=== PATIENT | female | born 1955 | race Caucasian/White ===

== ENCOUNTER → 2016-04-23 | Outpatient (CLI) | payer BC ==
--- NOTE | 2016-04-23 10:57 | MM ---
Reason for exam: follow-up at short interval from prior study. Last mammogram was performed 3 months ago. History: Patient is postmenopausal. Physical Findings: Nurse Summary: 0.5cm nodule in the left breast at 5 o'clock and 12 o'clock (nurse kp). MG Diagnostic Mammo LT w CAD CC, MLO, and ML view(s) were taken of the left breast. Prior study comparison: January 13, 2016, left breast MG work up mamm w CAD LT. January 06, 2016, bilateral MG screening mammo w CAD. There are scattered fibroglandular densities. Persistant nodularity in the left breast. ASSESSMENT: Incomplete: need additional imaging evaluation, BI-RAD 0 RECOMMENDATION: Ultrasound of the left breast.
--- NOTE | 2016-04-23 10:58 | USB ---
Reason for exam: additional evaluation requested from abnormal screening. History: Patient is postmenopausal. US Breast LT Left breast ultrasound including all four quadrants, the retroareolar region and axilla demonstrates a 6 x 3 x 5mm oval, cystic lesion at 5 o'clock. These results were verbally communicated with the patient and result sheet given to the patient on 04/23/16. ASSESSMENT: Probably benign, BI-RAD 3 RECOMMENDATION: Follow-up diagnostic mammogram of both breasts in 6 months. Ultrasound of the left breast in 6 months. Back on schedule. Manage patient on a clinical basis.
== END | disposition home or self-care (01) ==
LOC: RADMAMWWP 09:39
PROVIDERS: ATTEND Surgery
DX: R92.8 Other abnormal and inconclusive findings on diagnostic imaging of breast (principal)
CPT/HCPCS: 76641; G0206

== ENCOUNTER → 2016-11-28 | Outpatient (CLI) | payer BC ==
[2016-11-28 17:14] LABS: INR 4.5 (<1.2)
--- NOTE | 2016-11-29 10:51 | MM ---
Reason for exam: follow-up at short interval from prior study. Last mammogram was performed 7 months ago. History: Patient is postmenopausal. Physical Findings: Nurse Summary: 1cm nodule in the left breast at 11-12 o'clock (nurse kp). MG Diagnostic Mammo w CAD ALEXANDRA Bilateral CC and MLO view(s) were taken. Prior study comparison: April 23, 2016, left breast MG diagnostic mammo LT w CAD. January 13, 2016, left breast MG work up mamm w CAD LT. There are scattered fibroglandular densities. No suspicious calcifications are seen. There is no discrete abnormality at palpable site. Stable nodular density upper outer left breast. These results were verbally communicated with the patient and result sheet given to the patient on 11/28/16. ASSESSMENT: Incomplete: need additional imaging evaluation, BI-RAD 0 RECOMMENDATION: Ultrasound of the left breast.
--- NOTE | 2016-11-29 10:52 | USB ---
Reason for exam: follow-up at short interval from prior study. History: Patient is postmenopausal. US Breast LT Left breast ultrasound includes all four quadrants, the retroareolar region and axilla. Finding demonstrates a 6 x 4 x 5mm oval, mixed, hypoechoic lesion at 5 o'clock seen on previous, stable. These results were verbally communicated with the patient and result sheet given to the patient on 11/28/16. ASSESSMENT: Benign, BI-RAD 2 RECOMMENDATION: Routine screening mammogram of both breasts in 1 year. Manage patient on a clinical basis.
== END | disposition home or self-care (01) ==
LOC: RADMAMWWP 15:07
PROVIDERS: ATTEND Surgery
DX: R92.8 Other abnormal and inconclusive findings on diagnostic imaging of breast (principal)
CPT/HCPCS: 85610; 76641; 36415; G0204

== ENCOUNTER → 2016-12-20 | Outpatient (CLI) | payer BC ==
--- NOTE | 2016-12-20 15:49 | US ---
EXAMINATION TYPE: US kidneys/renal and bladder DATE OF EXAM: 12/20/2016 COMPARISON: CT 08/08/2014 CLINICAL HISTORY: R39.82 Chronic bladder pain. History of UTI EXAM MEASUREMENTS: Right Kidney: 10.0 x 4.6 x 4.3 cm Left Kidney: 10.0 x 5.0 x 4.1 cm Post Void Residual Volume: 10.0 mL Right Kidney: No hydronephrosis or masses seen Left Kidney: Cyst visualized lower pole measuring 2.3 x 2.3 x 1.9 cm Bladder: Not fully distended, visualized portion appear wnl Bilateral Jets seen: No, however bladder is not fully distended Normal Post Void Residual: Yes, there is not a significant prevoid bladder distention. There is cortical thinning bilaterally. Cortical medullary differentiation appears maintained, there may be some slight increase in cortical echogenicity. There is no ascites. IMPRESSION: Simple cyst left kidney. There may be some underlying medical renal disease.
== END | disposition home or self-care (01) ==
LOC: RADUSWWP 14:16
PROVIDERS: ATTEND Family Medicine
DX: N28.1 Cyst of kidney, acquired (principal); R39.82 Chronic bladder pain
CPT/HCPCS: 76770

== ENCOUNTER → 2018-07-02 | Outpatient (CLI) | payer OTHER ==
[2018-07-02 12:18] LABS: Basophils % (A) 0 %; Eosinophils # (A) 0.3 k/uL (0-0.7); Eosinophils % (A) 3 %; HCT 44.2 % (34.0-46.0); HGB 13.8 gm/dL (11.4-16.0); Hypochromasia Slight; Lymphocytes # (A) 1.9 k/uL (1.0-4.8); Lymphocytes % (A) 21 %; MCH 28.8 pg (25.0-35.0); MCHC 31.3 g/dL (31.0-37.0); MCV 92.2 fL (80.0-100.0); Monocytes # (A) 0.4 k/uL (0-1.0); Monocytes % (A) 5 %; Neutrophils # (A) 6.2 k/uL (1.3-7.7); Neutrophils % (A) 68 %; Platelet Count 229 k/uL (150-450); RBC 4.79 m/uL (3.80-5.40); RDW 14.1 % (11.5-15.5); WBC 9.1 k/uL (3.8-10.6)
[2018-07-02 12:24] LABS: Appearance,Urine Cloudy (Clear); Bilirubin,Urine Negative (Negative); Blood,Urine Negative (Negative); Color,Urine Yellow; Glucose,Urine (UA) Negative (Negative); Hyaline Casts,Urine 1 /lpf (0-2); Ketones,Urine Negative (Negative); Leukocyte Esterase,Urine Negative (Negative); Mucus,Urine Occasional /hpf; Nitrite,Urine Negative (Negative); Protein,Urine Negative (Negative); RBC,Urine <1 /hpf (0-5); Specific Gravity,Urine 1.025 (1.001-1.035); Squamous Epithelial Cell,Urine 9 /hpf (0-4); Urobilinogen,Urine <2.0 mg/dL (<2.0); WBC,Urine 2 /hpf (0-5)
[2018-07-02 17:32] LABS: Vitamin D 25 Hydroxy 32.7 ng/mL (30.0-100.0)
[2018-07-02 18:06] LABS: T4, Free (Free Thyroxine) 1.2 ng/dL (0.80-1.80)
[2018-07-02 18:08] LABS: Albumin/Globulin Ratio 1.54 (1.60-3.17); Anion Gap 7.7 mmol/L (4.00-12.00); Calcium 9.6 mg/dL (8.7-10.3); Carbon Dioxide 25.3 mmol/L (21.6-31.8); Globulin 2.6 g/dL (1.6-3.3); LDL Cholesterol,Calculated 113.8 mg/dL (0.0-131.0); Potassium 4.8 mmol/L (3.5-5.5); Total Bilirubin 0.3 mg/dL (0.3-1.2); Total Protein 6.6 g/dL (6.2-8.2); VLDL Calculation 17.2 mg/dL (5.00-40.00)
== END | disposition home or self-care (01) ==
LOC: LABWHC1 10:52
PROVIDERS: ATTEND Family Medicine
DX: E03.9 Hypothyroidism, unspecified (principal); M79.7 Fibromyalgia; Z79.01 Long term (current) use of anticoagulants; Z86.718 Personal history of other venous thrombosis and embolism
CPT/HCPCS: 36415; 80053; 80061; 81001; 82306; 82550; 82607; 83735; 84439; 84443; 85025

== ENCOUNTER → 2019-02-05 | Outpatient (CLI) | payer OTHER ==
[2019-02-05 11:31] LABS: Basophils # (A) 0.1 k/uL (0-0.2); Basophils % (A) 1 %; Eosinophils # (A) 0.4 k/uL (0-0.7); Eosinophils % (A) 4 %; HCT 43.6 % (34.0-46.0); HGB 13.6 gm/dL (11.4-16.0); Lymphocytes # (A) 1.9 k/uL (1.0-4.8); Lymphocytes % (A) 21 %; MCH 29.2 pg (25.0-35.0); MCHC 31.2 g/dL (31.0-37.0); MCV 93.7 fL (80.0-100.0); Monocytes # (A) 0.6 k/uL (0-1.0); Monocytes % (A) 7 %; Neutrophils # (A) 5.6 k/uL (1.3-7.7); Neutrophils % (A) 64 %; Platelet Count 196 k/uL (150-450); RBC 4.65 m/uL (3.80-5.40); RDW 13.4 % (11.5-15.5); WBC 8.7 k/uL (3.8-10.6)
[2019-02-05 12:02] LABS: Appearance,Urine Clear (Clear); Bilirubin,Urine Negative (Negative); Blood,Urine Negative (Negative); Color,Urine Yellow; Glucose,Urine (UA) Negative (Negative); Ketones,Urine Negative (Negative); Leukocyte Esterase,Urine Negative (Negative); Nitrite,Urine Negative (Negative); PH, Urine 5.5 (5.0-8.0); Protein,Urine Negative (Negative); Specific Gravity,Urine 1.021 (1.001-1.035); Urobilinogen,Urine <2.0 mg/dL (<2.0)
[2019-02-05 17:35] LABS: African American GFR (CKD) 78.3 (60.0-200.0); Albumin 3.9 g/dL (3.80-4.90); Albumin/Globulin Ratio 1.56 (1.60-3.17); Anion Gap 5.7 mmol/L (4.00-12.00); BUN/Creat Ratio 17.78 Ratio (12.00-20.00); Calcium 9.1 mg/dL (8.7-10.3); Carbon Dioxide 25.3 mmol/L (21.6-31.8); Chol/HDL Ratio 3.14; Globulin 2.5 g/dL (1.6-3.3); LDL Cholesterol,Calculated 106.8 mg/dL (0.0-131.0); Non-African American GFR(CKD) 67.6 (60.0-200.0); Potassium 4.4 mmol/L (3.5-5.5); Total Bilirubin 0.4 mg/dL (0.3-1.2); Total Protein 6.4 g/dL (6.2-8.2); VLDL Calculation 19.2 mg/dL (5.00-40.00)
[2019-02-05 17:42] LABS: T4, Free (Free Thyroxine) 1.1 ng/dL (0.80-1.80)
== END | disposition home or self-care (01) ==
LOC: LABWHC1 10:50
PROVIDERS: ATTEND Family Medicine
DX: E03.9 Hypothyroidism, unspecified (principal); M79.7 Fibromyalgia; Z79.01 Long term (current) use of anticoagulants; Z86.718 Personal history of other venous thrombosis and embolism
CPT/HCPCS: 36415; 80053; 80061; 81003; 82306; 82550; 83735; 84439; 84443; 85025

== ENCOUNTER → 2019-12-31 | Outpatient (CLI) | payer MEDICARE ==
--- NOTE | 2019-12-31 20:22 | BD ---
EXAMINATION TYPE: Axial Bone Density DATE OF EXAM: 12/31/2019 COMPARISON: NONE CLINICAL HISTORY: 64 YR OLD FEMALE.....ICD-10 CODE: N95.1 MENOPAUSAL Height: 62 Weight: 173 FRAX RISK QUESTIONS: History of Fracture in Adulthood: YES RISK FACTORS HISTORY OF: History of Wrist Fracture: YES, LEFT WRIST, AN ADULT Postmenopausal woman: YES, TOTAL HYST IN 2001 AT 44 YRS OLD Lost more than 2 inches in height since high school: YES, SHE CLAIMS 65 INCHES IN HS Hyperparathyroidism: NO Adrenal Insufficiency: NO MEDICATIONS: Thyroid Medications: YES, SYNTHROID, FOR ABOUT 10+ YRS Additional Medications: VIT D, B12, COUMADIN Additional History: CLOTTING DISORDER EXAM MEASUREMENTS: Bone mineral densitometry was performed using the Newser System. Bone mineral density as measured about the Lumbar spine is: ----- L1-L4(G/cm2): 1.038 T Score Values are as follows: ----- L1: -2.4 ----- L2: -2.2 ----- L3: -0.5 ----- L4: -0.2 ----- L1-L4: -1.2 Bone mineral density FIRST BONE DENSITY STUDY AT [facility] Bone mineral density about the R hip (g/cm2): 0.769 Bone mineral density about the L hip (g/cm2): 0.766 T Score values are as follows: -----R Neck: -2.1 -----L Neck: -2.1 -----R Total: -1.9 -----L Total: -1.9 Bone mineral density FIRST AT [facility] FRAX%s: THERE IS A 17.8% CHANCE FOR A MAJOR OSTEOPOROTIC FX AND A 3.0% FOR HIP......PROBABILITY FO R FX IN 10 YRS TIME IMPRESSION: Osteopenia (T Score between -2.5 and -1). There is slightly increased risk of fracture and the patient may be considered for treatment. Re-Screen 2-5 years. NOTE: T-SCORE=SD OF THE YOUNG ADULT MEAN.
== END | disposition home or self-care (01) ==
LOC: RADBDWWP 12:39
PROVIDERS: ATTEND Family Medicine
DX: M85.80 Other specified disorders of bone density and structure, unspecified site (principal)
CPT/HCPCS: 77080

== ENCOUNTER → 2021-12-13 | Outpatient (CLI) | payer MEDICARE ==
--- NOTE | 2021-12-13 19:50 | CT ---
EXAMINATION TYPE: CT abdomen pelvis wo con CT DLP: 792 mGycm, Automated exposure control for dose reduction was used. DATE OF EXAM: 12/13/2021 5:41 PM COMPARISON: CT abdomen pelvis most recent from 08/08/2014 CLINICAL INDICATION:Female, 66 years old with history of R10.32 LEFT LOWER QUADRANT PAIN; lower abdom inal pain and cramping. hx of diverticulitis TECHNIQUE: Axial CT of the abdomen and pelvis. Sagittal and coronal reformats were created on a [employer] workstation. Contrast used: None Oral contrast used: with Oral Contrast FINDINGS: LOWER CHEST: Unremarkable ABDOMEN LIVER: Unremarkable GALLBLADDER AND BILE DUCTS: The gallbladder is surgically absent. PANCREAS: Lipomatous atrophy changes. SPLEEN: Unremarkable. ADRENAL GLANDS: Unremarkable. KIDNEYS AND URETERS: No evidence of hydronephrosis or renal calculus. The ureters are unremarkable. Left renal cyst. PELVIS BLADDER: Incompletely distended but grossly unremarkable. REPRODUCTIVE: The uterus is surgically absent. ABDOMEN & PELVIS STOMACH AND BOWEL: Mild wall thickening of the sigmoid colon in the left lower quadrant measuring karin roximately 4.1 cm in 2 10 mm in thickness which is slightly eccentric. There is minimal fat stranding in this area as well as a few colonic diverticula. PERITONEUM: No evidence of pneumoperitoneum or free fluid. VASCULATURE: No evidence of aortic aneurysm. IVC filter in place. MUSCULOSKELETAL: No acute osseous abnormalities LYMPH NODES: No gross evidence for lymphadenopathy. SOFT TISSUE/ABDOMINAL WALL: Left fat-containing inguinal hernia. IMPRESSION: 1. Sigmoid colon circumferential slightly eccentric wall thickening which could represent colitis/div erticulitis. Follow-up colonoscopy recommended to rule out underlying mass if not recently performed given slightly eccentric wall thickening. 2. Left fat containing inguinal hernia.
== END | disposition home or self-care (01) ==
LOC: RADCTMAIN 17:18
PROVIDERS: ATTEND Family Medicine
DX: K40.90 Unilateral inguinal hernia, without obstruction or gangrene, not specified as recurrent (principal)
CPT/HCPCS: 74176

== ENCOUNTER → 2022-02-27 | Outpatient (CLI) | payer MEDICARE ==
--- NOTE | 2022-02-27 21:50 | FL ---
EXAMINATION TYPE: FL barium enema DATE OF EXAM: 02/27/2022 COMPARISON: Prior CT abdomen and pelvis December 13, 2021 and older study from 2014. HISTORY: Abnormal CT. History of constipation and diarrhea. Abdominal pain and cramping. Diverticulos is. TECHNIQUE: A double contrast barium enema study is performed. A total of 2 minutes 13 seconds of fl uoroscopic time was utilized during procedure and 27 images obtained. FINDINGS: Wood Boat[employer] view of the abdomen shows overall non-obstructive bowel gas pattern. Cholecystectomy clips are redemonstrated. Infrarenal IVC filter again seen. An MR study is successfully performed. There is satisfactory opacification to the cecum. Scattered di verticulosis throughout the left and sigmoid colon lungs with few scattered diverticula in the transv erse colon are present. No obstructing lesion is seen. Appendix was filled and appeared normal. Terminal ileum was not refluxed. At area of clinical concern on recent CT the proximal sigmoid colon level there is short segment persistent narrowing which negra elates with the CT area axial image 66 and coronal image 41. There is some shouldering of the margins but fairly normal-appearing mucosa centrally. Findings would shaver a focal stricture over neoplasm. Remainder of colon shows no constricting lesion. IMPRESSION: Persistent short segment abnormal area of proximal sigmoid colon level left pelvis. Foca l stricture is favored over neoplasm. No obstruction currently but the degree of narrowing is signifi cant. Would consider colonoscopy and/or surgical evaluation to exclude mass or neoplasm and/or treat significant focal stricture. CT with rectal contrast may also possibly help in further evaluating.
== END | disposition home or self-care (01) ==
LOC: RADFLMAIN 09:16
PROVIDERS: ATTEND Surgery
DX: K57.32 Diverticulitis of large intestine without perforation or abscess without bleeding (principal); K59.00 Constipation, unspecified
CPT/HCPCS: 74270

== ENCOUNTER → 2022-03-16 | Outpatient (CLI) | payer MEDICARE ==
[2022-03-16 15:52] LABS: INR 3.04 (0.90-1.11); Prothrombin Time 32.9 sec (9.9-11.9)
== END | disposition home or self-care (01) ==
LOC: LABWHC1 09:23
PROVIDERS: ATTEND Family Medicine
DX: Z79.01 Long term (current) use of anticoagulants (principal)
CPT/HCPCS: 36415; 85610

== ENCOUNTER → 2022-06-07 | Outpatient (CLI) | payer MEDICARE ==
--- NOTE | 2022-06-07 10:58 | XR ---
EXAMINATION TYPE: XR chest 2V DATE OF EXAM: 06/07/2022 COMPARISON: 02/01/2015 HISTORY: Preoperative, history of PE TECHNIQUE: Frontal and lateral views of the chest are obtained. FINDINGS: The heart is not enlarged and there is no pulmonary vascular congestion. The lungs are swapnil ar and there is no pleural effusion. No pneumothorax. No acute osseous abnormalities. Surgical clips projecting over the right upper quadrant. IMPRESSION: No acute cardiopulmonary process.
[2022-06-07 14:21] LABS: HCT 39.8 % (37.2-46.3); MCH 29.4 pg (27.0-32.0); MCHC 30.2 g/dL (32.0-37.0); MCV 97.5 fL (80.0-97.0); Mean Platelet Volume 12.2 fL (9.5-12.2); NRBC Per 100 WBC 0 /100 WBCS (0.0-0.0); Platelet Count 266 X 10*3/uL (140-440); RBC 4.08 X 10*6/uL (4.10-5.20); RDW 15.2 % (11.5-14.5); WBC 9.73 X 10*3/uL (4.50-10.00)
[2022-06-07 15:18] LABS: African American GFR (CKD) 76.7 (60.0-200.0); Anion Gap 14.1 mmol/L (10.00-18.00); BUN/Creat Ratio 16.67 Ratio (12.00-20.00); Calcium 9.7 mg/dL (8.7-10.3); Carbon Dioxide 19.9 mmol/L (20.0-27.5); Non-African American GFR(CKD) 66.2 (60.0-200.0); Potassium 4.1 mmol/L (3.5-5.5)
== END | disposition home or self-care (01) ==
LOC: LABWHC1 09:33
PROVIDERS: ATTEND Surgery
DX: Z01.812 Encounter for preprocedural laboratory examination (principal); Z86.711 Personal history of pulmonary embolism
CPT/HCPCS: 36415; 71046; 80048; 85027; 86850; 86900; 86901

== ENCOUNTER → 2024-05-15 | Outpatient (CLI) | payer MEDICARE ==
--- NOTE | 2024-05-15 18:59 | CT ---
EXAMINATION TYPE: CT abdomen pelvis wo con DATE OF EXAM: 05/15/2024 11:08 AM COMPARISON: 12/13/2021 CLINICAL INDICATION: Female, 68 years old with history of K57.32 DVTRCLI OF LG INT W/O PERFORATION OR ABSCES, diverticulitis without perforation or abscess, history of 10 inches of colon removed TECHNIQUE: Axial images were obtained from above the diaphragm to the pubic rami in the axial plane a t 5 mm thick sections. Reconstructed images are reviewed on the computer in the coronal plane. CONTRAST: mL of . Study performed without Oral Contrast DLP: 857 mGycm, Automated exposure control for dose reduction was used. FINDINGS: Limited CT sections are obtained the lung bases. The lung bases are clear. CT ABDOMEN: Anterior abdominal wall hernia is present in the periumbilical region. The opening is 2.5 cm. No loops of bowel are involved. More superiorly a second anterior abdominal wall hernia containi ng loop of small bowel is present. No obstruction is evident. The opening is 4 cm. Liver: Normal Spleen: Normal Pancreas: There is fatty infiltration of the liver. Adrenal glands: The adrenal glands are normal. Gallbladder: Surgically absent. Kidneys: No masses are evident. No hydronephrosis is present. No cysts are present. No renal stone s are evident. Aorta: Vascular calcification is within the aorta. Inferior vena cava: Filter is present within the inferior vena cava. CT PELVIS: Loops of bowel within the abdomen and pelvis are normal. There appears to be some bowel surgery in t he right lower quadrant. This may be the patient's sigmoid resection. Additional anastomosis is not ed in the anterior small bowel loops. No obstruction is identified. There are loops of bowel which ar e incompletely distended or lack oral contrast limiting their evaluation. No suspicious diverticulosis no acute diverticulitis evident. Appendix: Normal as visualized. No adjacent inflammatory changes. Urinary bladder: Normal. Genitourinary structures: Uterus and ovaries are not identified. Osseous structures: No suspicious lytic or sclerotic lesions. IMPRESSION: 1. No acute diverticulitis and no significant diverticulosis. 2. Postsurgical changes. No obvious obstruction evident. 3. Small anterior abdominal wall hernias containing mesenteric fat. A loop of small bowel bowel is wi thin the more superior hernia without obstruction. 4. Mild fatty infiltration liver. [facility], , 05/15/2024 6:56 PM
== END | disposition home or self-care (01) ==
LOC: RADCTMAIN 10:36
PROVIDERS: ATTEND Surgery
DX: K76.0 Fatty (change of) liver, not elsewhere classified (principal); K57.92 Diverticulitis of intestine, part unspecified, without perforation or abscess without bleeding
CPT/HCPCS: 74176

== ENCOUNTER 2024-06-15 08:57 | Day surgery (SDC) | payer MEDICARE ==
[2024-06-11 09:42] VITALS: BMI 32.1
--- NOTE | 2024-06-15 07:45 | P.GSHP ---
History of Present Illness H&P Date: 06/15/24 Chief Complaint: Incisional hernia 68-year-old female presents for elective repair incisional hernia. Patient with history of diverticulitis and previous resection done laparoscopically. After the surgery felt a bulge above the umbilicus. CAT scan shows a hernia that is s upraumbilical and also 1 near the umbilical region itself. Non-smoker. Increasing pain there. Also has some vague discomforts elsewhere in the abdomen. Recent CAT scan performed showed no other abnormalities. Past Medical History Past Medical History: Blood Disorder, Deep Vein Thrombosis (DVT), Fibromyalgia, Pulmonary Embolus (PE), Thyroid Disorder Additional Past Medical History / Comment(s): blood clotting disorder (could be katie, thrombin D deficincy, Vit C deficency) on Coumadin, pulmonary embolisms bilaterally, DVT to L leg, diverticulitis,Raynauds bilaterally, hypothyroidism, UTI History of Any Multi-Drug Resistant Organisms: None Reported Past Surgical History: Bowel Resection, Cholecystectomy, Hysterectomy Additional Past Surgical History / Comment(s): rosa filter, colonoscopies x 2 normal. ILEOSTOMY WITH REVERSAL Past Anesthesia/Blood Transfusion Reactions: No Reported Reaction Additional Past Anesthesia/Blood Transfusion Reaction / Comment(s): Has had transfusion without reaction. Smoking Status: Never smoker - Past Family History Father Family Medical History: Coronary Artery Disease (CAD), Dementia Additional Family Medical History / Comment(s): HEart disease, alzheimers- at age 79yrs. Mother Family Medical History: Blood Disorder Additional Family Medical History / Comment(s): Emphysema, Blood Disorder. Mother at age 64 yrs. Medications and Allergies Home Medications Medication Instructions Recorded Confirmed Type Cholecalciferol [Vitamin D3 (25 2,000 unit PO DAILY 08/07/14 06/11/24 History Mcg = 1000 Iu)] Cyanocobalamin [Vitamin B-12] 500 mcg PO Q2D 08/07/14 06/11/24 History Levothyroxine Sodium [Synthroid] 50 mcg PO DAILY 08/07/14 06/11/24 History Warfarin [Coumadin] 5 mg PO DAILY 08/07/14 06/11/24 History Calcium Carbonate/Vitamin D3 1 each PO DAILY 06/11/24 06/11/24 History [Calcium 500-Vit D3 5 Mcg (200 Iu)] Lutein 20 mg PO Q2D 06/11/24 06/11/24 History Allergies Allergy/AdvReac Type Severity Reaction Status Date / Time adhesive Allergy Rash/Hives Verified 06/11/24 09:26 Bleach (Sodium Hypochlorite) Allergy Dyspnea Verified 06/11/24 09:27 Iodinated Contrast Media Allergy Anaphylaxis Verified 06/11/24 09:26 [Iodinated Contrast Media - IV Dye] Penicillins Allergy Rash/Hives Verified 06/11/24 09:26 Sulfa (Sulfonamide Allergy Rash/Hives Verified 06/11/24 09:26 Antibiotics) Surgical - Exam Physical exam: General: Well-developed, well-nourished HEENT: Normocephalic, sclerae nonicteric Abdomen: Nontender, nondistended, previous scars noted, reducible periumbilical hernia Extremities: No edema Neuro: Alert and oriented Assessment and Plan (1) Umbilical hernia Narrative/Plan: 68-year-old female with reducible periumbilical incisional hernia. Will proceed with open repair incisional hernia with mesh. Risks of bleeding, infection, recurrence, chronic pain, bladder and bowel injury, numbness, scarring, and anesthesia related complications were discussed. The correlation between hernia recurrence, obesity and smoking were reviewed in detail. The patient understands and wishes to proceed. Status: Acute Code(s): K42.9 - UMBILICAL HERNIA WITHOUT OBSTRUCTION OR GANGRENE SNOMED Code(s): 438018810
[2024-06-15] MEDS: IV FLUID CONTINUATION 1,000 ML IV ONE (09:45)
[2024-06-15] MEDS: LACTATED RINGERS 1,000 ML IV SCH (09:45)
[2024-06-15] MEDS: ONDANSETRON 4 MG/2 ML VIAL IVP ONE (10:01)
[2024-06-15] MEDS: ACETAMINOPHEN TAB 500 MG TAB PO PRN (10:01)
[2024-06-15] MEDS: HEPARIN SODIUM,PORCINE 5,000 UNIT/ML 1 ML VIAL SQ PRN (10:02)
[2024-06-15] MEDS: DEXAMETHASONE SOD PHOSPHATE 4 MG/ML 1 ML VIAL IV ONE (10:02)
[2024-06-15 10:10] LABS: INR 0.9 (<1.2); Prothrombin Time 10.2 sec (10.0-12.5)
[2024-06-15] MEDS ORDERED: SUCCINYLCHOLINE CHLORIDE 200 MG/10 ML VIAL IV ONE (10:45)
[2024-06-15] MEDS ORDERED: LIDOCAINE 1% INJ 10MG/ML (20 ML MDV) ONE (10:45)
[2024-06-15] MEDS ORDERED: MIDAZOLAM 2 MG/2 ML VIAL ONE (10:45)
[2024-06-15] MEDS ORDERED: ROCURONIUM 10 MG/ML (5 ML VIAL) IV ONE (10:45)
[2024-06-15] MEDS ORDERED: fentaNYL (PF) 50 MCG/ML 2 ML AMP ONE (10:45)
[2024-06-15] MEDS ORDERED: PROPOFOL 10 MG/ML 20 ML VIAL IV ONE (10:45)
[2024-06-15] MEDS ORDERED: LIDOCAINE 4% LTA KIT (4 ML) TOPICAL ONE (10:45)
[2024-06-15] MEDS ORDERED: NEOSTIGMINE 1 MG/ML 10 ML VIAL ONE (10:45)
[2024-06-15] MEDS ORDERED: PHENYLEPHRINE-0.9% NACL SYG 1,000 MCG/10 ML SYRINGE ONE (10:45)
[2024-06-15] MEDS ORDERED: HEPARIN SODIUM,PORCINE 5,000 UNIT/ML 1 ML VIAL ONE (10:45)
[2024-06-15] MEDS ORDERED: GLYCOPYRROLATE 0.2 MG/ML 2 ML VIAL ONE (10:45)
[2024-06-15] MEDS ORDERED: KETAMINE HCL IN 0.9 % NACL 50 MG/5 ML SYRINGE ONE (10:45)
[2024-06-15] MEDS: BUPIVACAINE (PF) 0.25% 30 ML VIAL SQ ONE (11:12)
--- NOTE | 2024-06-15 12:28 | P.OP ---
Date of Procedure: 06/15/24 Procedure(s) Performed: PREOPERATIVE DIAGNOSIS: Incisional hernia POSTOPERATIVE DIAGNOSIS: Same PROCEDURE: Reducible incisional hernia repair with mesh SURGEON: Dr. Nelson ANESTHESIA: General EBL: 20 cc OPERATIVE PROCEDURE DETAILS: Patient placed on the operating table in the supine position. Abdomen was prepped and draped in usual sterile fashion. The previous incision was re-incised. Incision went from the supraumbilical location to the infraumbilical location to the right side of the umbilicus. D issection through the subcutaneous tissues took place using electrocautery. A moderate-sized hernia was identified. The hernia sac was carefully dissected down to the level of the fascia where it was excised. The patient had a total of 3 fascial openings with the largest measuring about 4 cm in diameter. The 2 smaller ones were inferiorly each measuring 1-2 cm. These were all incorporated into one larger fascial defect which measured approximately 7 x 5 cm. The 12 x 8 cm ventrio mesh was placed beneath the fascia and sutured to the fascia using trans-fascial 0 Ethibond sutures. Secure strap was utilized between these transfascial sutures. Following that the midline fascia was reapproximated using interrupted horizontal mattress 0 Ethibond sutures. A drain was placed anterior to the fascial closure exiting through the left lower quadrant. This was sutured to the skin using a 3-0 silk stitch. The subcutaneous tissues were closed using 2 oh and 3-0 Vicryl sutures. The skin was closed using a running 4-0 Monocryl subcuticular stitch. Skin glue and sterile dressings were applied. HERNIA CHARACTERISTICS: Length: 7 cm Width: 5 cm Type: Reducible incisional TYPE OF MESH USED: 12 x 8 cm Ventrio mesh LOCATION OF MESH: Sublay intraperitoneal FIXATION: 0 Ethibond and secure strap PREOPERATIVE DISCUSSION ON SMOKING CESSASTION: Yes PREOPERATIVE DISCUSSION ON MORBID OBESITY: Yes PREOPERATIVE DISCUSSION ON APPROPRIATE USE OF NARCOTIC USE: Yes PREOPERATIVE EDUCATION: Multi Modal, Smoking Cessation and Weight Loss with BMI over 35. DISPOSITION: Stable to recovery room
[2024-06-15] MEDS: HYDROmorphone 0.5 MG/0.5 ML SYRINGE IVP PRN (12:59)
[2024-06-15] MEDS ORDERED: HYDROcodone/APAP 5-325MG 1 EACH TAB PO PRN (14:22)
[2024-06-15] MEDS ORDERED: traMADol 50 MG TAB PO PRN (14:22)
[2024-06-15] MEDS ORDERED: HYDROmorphone 0.5 MG/0.5 ML SYRINGE IVP PRN (14:22)
[2024-06-15] MEDS ORDERED: HYDROmorphone 1 MG/ML 1 ML SYRINGE IVP PRN (14:22)
[2024-06-15] MEDS ORDERED: NALOXONE 0.4 MG/ML 1 ML VIAL IV PRN (14:22)
[2024-06-15] MEDS: IV FLUID CONTINUATION 500 ML IV ONE (14:28)
[2024-06-15] MEDS: MIDAZOLAM 2 MG/2 ML VIAL IV ONE (14:38)
[2024-06-15] MEDS: fentaNYL (PF) 50 MCG/ML 2 ML AMP IVP PRN (14:39)
--- NOTE | 2024-06-15 15:45 | P.CONS ---
History of Present Illness - Reason for Consult Consult date: 06/15/24 - History of Present Illness History of present illness: 68-year-old female with past medically significant for DVT/PE, history of blood clotting disorder, on Coumadin, history of hypothyroidism, has history of diverticulitis and previously had resection done laparoscopically, after surgery she felt a bulge over the umbilicus. CT scan showed a hernia which was supraumbilical. Patient underwent elective incisional hernia repair. Internal medicine consulted for medical management. Patient denied any history of heart disease, high blood pressure, high cholesterol. Patient reported history of having DVT and PEs, reported she takes Coumadin normally, was just put on Eliquis to go through surgery. Patient denied any fever, chills, sore throat, productive cough, shortness breath, chest pain, palpitation, nausea vomiting diarrhea. Patient complaining of abdominal pain after surgery. Patient denied any weakness or numbness of extremities. Patient is afebrile, heart rate 71, respiratory rate 16, blood pressure 122/60, saturating 95% 3 L. Assessment and plan: Status post elective incisional hernia repair: Management per general surgery Pain control, perioperative antibiotics, drain care per primary Bowel/bladder protocol History of DVT/PE: History of IVC filter: Coumadin resumed by general surgery Continue Coumadin, monitor INR Hypothyroidism: Continue Synthroid DVT prophylaxis Anticoagulated Monitor vital signs and labs Labs and medication were reviewed. Continue same treatment. Further recommendations as per clinical course of the patient PHYSICAL EXAMINATION: GENERAL: The patient is A&O x3, NAD HEENT: EOMI, Sclerae anicteric, Moist Mucous membranes Neck: Supple, Non tender, No JVD PULMONARY: Equal breath souds B/L, No wheezing, No crackles. CARDIOVASCULAR: S1, S2 present. No murmurs, rubs, or gallops. ABDOMEN: Binder in place. Tender. MUSCULOSKELETAL: No edema, No cyanosis. No clubbing. Normal ROM. Intact peripheral pulses. NEUROLOGICAL: CN 2-12 grossly intact. No FND REVIEW OF SYSTEMS: CONSTITUTIONAL: Complaining of fatigue. HEENT: No recent visual problems or hearing problems. Denied any sore throat. CARDIOVASCULAR: No chest pain, orthopnea, PND, no palpitations, no syncope. PULMONARY: No shortness of breath, no cough, no hemoptysis. GASTROINTESTINAL: No diarrhea, no nausea, no vomiting, complains of abdominal pain. NEUROLOGICAL: No headaches, no weakness, no numbness. HEMATOLOGICAL: Denies any bleeding or petechiae. GENITOURINARY: Denies any burning micturition, frequency, or urgency. MUSCULOSKELETAL/RHEUMATOLOGICAL: Denies any joint pain, swelling, or any muscle pain. ENDOCRINE: Denies any polyuria or polydipsia. The rest of the 14-point review of systems is negative. Dictation was produced using txtr dictation software. please excuse any grammatical, word or spelling errors. Past Medical History Past Medical History: Blood Disorder, Deep Vein Thrombosis (DVT), Fibromyalgia, Pulmonary Embolus (PE), Thyroid Disorder Additional Past Medical History / Comment(s): blood clotting disorder (could be katie, thrombin D deficincy, Vit C deficency) on Coumadin, pulmonary embolisms bilaterally, DVT to L leg, diverticulitis,Raynauds bilaterally, hypothyroidism, UTI History of Any Multi-Drug Resistant Organisms: None Reported Past Surgical History: Bowel Resection, Cholecystectomy, Hysterectomy Additional Past Surgical History / Comment(s): rosa filter, colonoscopies x 2 normal. ILEOSTOMY WITH REVERSAL Past Anesthesia/Blood Transfusion Reactions: No Reported Reaction Additional Past Anesthesia/Blood Transfusion Reaction / Comm: Has had transfusion without reaction. Smoking Status: Never smoker - Past Family History Father Family Medical History: Coronary Artery Disease (CAD), Dementia Additional Family Medical History / Comment(s): HEart disease, alzheimers- at age 79yrs. Mother Family Medical History: Blood Disorder Additional Family Medical History / Comment(s): Emphysema, Blood Disorder. Mother at age 64 yrs. Medications and Allergies Home Medications Medication Instructions Recorded Confirmed Type Cholecalciferol [Vitamin D3 (25 2,000 unit PO DAILY 08/07/14 06/11/24 History Mcg = 1000 Iu)] Cyanocobalamin [Vitamin B-12] 500 mcg PO Q2D 08/07/14 06/11/24 History Levothyroxine Sodium [Synthroid] 50 mcg PO DAILY 08/07/14 06/11/24 History Warfarin [Coumadin] 5 mg PO DAILY 08/07/14 06/11/24 History Calcium Carbonate/Vitamin D3 1 each PO DAILY 06/11/24 06/11/24 History [Calcium 500-Vit D3 5 Mcg (200 Iu)] Lutein 20 mg PO Q2D 06/11/24 06/11/24 History Apixaban [Eliquis] 5 mg PO BID 06/15/24 06/15/24 History oxyCODONE HCL [OxyIR] 5 mg PO Q6H PRN 3 Days #6 tab 06/15/24 Rx Allergies Allergy/AdvReac Type Severity Reaction Status Date / Time adhesive Allergy Rash/Hives Verified 06/15/24 09:21 Bleach (Sodium Hypochlorite) Allergy Dyspnea Verified 06/15/24 09:21 Iodinated Contrast Media Allergy Anaphylaxis Verified 06/15/24 09:21 [Iodinated Contrast Media - IV Dye] Penicillins Allergy Rash/Hives Verified 06/15/24 09:21 Sulfa (Sulfonamide Allergy Rash/Hives Verified 06/15/24 09:21 Antibiotics) Physical Exam Vitals: Vital Signs Temp Pulse Pulse Resp BP BP Pulse Ox 06/15/24 14:57 71 16 122/60 95 06/15/24 14:42 67 14 124/63 94 L 06/15/24 14:20 65 14 113/55 93 L 06/15/24 14:05 72 14 115/56 94 L 06/15/24 13:50 70 14 116/59 95 06/15/24 13:35 78 16 127/58 95 06/15/24 13:20 75 14 130/59 99 06/15/24 13:05 81 16 141/65 98 06/15/24 12:50 88 14 140/67 98 06/15/24 12:35 97 F L 99 14 168/89 98 06/15/24 09:45 97.2 F L 85 16 145/72 97 Intake and Output 06/15/24 06/15/24 06/15/24 06:59 14:59 22:59 Intake Total 1200 Output Total 20 Balance 1180 Intake: IV 1200 Output: Estimated Blood Loss 20 Other: Weight 83.9 kg
[2024-06-15] MEDS: IBUPROFEN 600 MG TAB PO SCH (16:52)
[2024-06-15] MEDS: KETOROLAC 15 MG/ML 1 ML VIAL IVP SCH (18:58)
[2024-06-15] MEDS: WARFARIN 5 MG TAB PO SCH (18:59)
[2024-06-15] MEDS: CYANOCOBALAMIN 500 MCG TAB PO SCH (18:59)
[2024-06-15] MEDS: D5-0.45% NACL WITH KCL 20MEQ/L 1,000 ML IV SCH (18:59)
[2024-06-15] MEDS: ACETAMINOPHEN TAB 325 MG TAB PO SCH (18:59)
[2024-06-15] MEDS: DOCUSATE 100 MG CAP PO SCH (20:24)
[2024-06-15] MEDS: FAMOTIDINE 20 MG TAB PO SCH (20:24)
[2024-06-16] MEDS: ONDANSETRON 4 MG/2 ML VIAL IVP PRN (01:57)
[2024-06-16 04:36] LABS: Prothrombin Time 11.1 sec (10.0-12.5)
[2024-06-16] MEDS: LEVOTHYROXINE 50 MCG TAB PO SCH (05:41)
[2024-06-16 08:32] LABS: ALT 13 U/L (8-44); AST 20 U/L (13-35); Albumin 3.4 g/dL (3.8-4.9); Albumin/Globulin Ratio 1.17 Ratio (1.60-3.17); Alkaline Phosphatase 121 U/L (41-126); Blood Urea Nitrogen 15.3 mg/dL (9.0-27.0); Calcium 9.3 mg/dL (8.7-10.3); Chloride 107 mmol/L (96-109); Globulin 2.9 g/dL (1.6-3.3); Glucose 153 mg/dL (70-110); Potassium 4.8 mmol/L (3.5-5.5); Sodium 140 mmol/L (135-145); Total Bilirubin 0.2 mg/dL (0.3-1.2); Total Protein 6.3 g/dL (6.2-8.2)
[2024-06-16 08:39] LABS: Basophils # (A) 0.02 X 10*3/uL (0.00-0.10); Basophils % (A) 0.1 %; Eosinophils # (A) 0 X 10*3/uL (0.04-0.35); Eosinophils % (A) 0 %; HCT 40.7 % (37.2-46.3); HGB 12.3 g/dL (12.0-15.0); Lymphocytes # (A) 0.93 X 10*3/uL (0.90-5.00); Lymphocytes % (A) 5.2 %; MCH 29.8 pg (27.0-32.0); MCHC 30.2 g/dL (32.0-37.0); MCV 98.5 FL (80.0-97.0); Mean Platelet Volume 13.2 FL (9.5-12.2); Monocytes # (A) 0.99 X 10*3/uL (0.20-1.00); Monocytes % (A) 5.6 %; NRBC Per 100 WBC 0 X 10*3/uL (0.00-0.01); Neutrophils # (A) 15.71 X 10*3/uL (1.80-7.70); Neutrophils % (A) 88.6 %; Platelet Count 186 X 10*3/uL (140-440); RBC 4.13 X 10*6/uL (4.10-5.20); RDW 13.5 % (11.5-14.5); WBC 17.73 X 10*3/uL (4.50-10.00)
--- NOTE | 2024-06-16 13:20 | P.PN ---
Subjective Progress Note Date: 06/16/24 Interval History: 68-year-old female with past medically significant for DVT/PE, history of blood clotting disorder, on Coumadin, history of hypothyroidism, has history of diverticulitis and previously had resection done laparoscopically, after surgery she felt a bulge over the umbilicus. CT scan showed a hernia which was supraumbilical. Patient underwent elective incisional hernia repair. Internal medicine consulted for medical management. Patient denied any history of heart disease, high blood pressure, high cholesterol. Patient reported history of having DVT and PEs, reported she takes Coumadin normally, was just put on Eliquis to go through surgery. Patient denied any fever, chills, sore throat, productive cough, shortness breath, chest pain, palpitation, nausea vomiting diarrhea. Patient complaining of abdominal pain after surgery. Patient denied any weakness or numbness of extremities. Patient is afebrile, heart rate 71, respiratory rate 16, blood pressure 122/60, saturating 95% 3 L. Assessment and plan: Status post elective incisional hernia repair: Management per general surgery Pain control, perioperative antibiotics, drain care per primary Bowel/bladder protocol History of DVT/PE: History of IVC filter: Coumadin resumed by general surgery Continue Coumadin, outpatient follow-up Coumadin clinic/PCP. Hypothyroidism: Continue Synthroid DVT prophylaxis Anticoagulated Monitor vital signs and labs Labs and medication were reviewed. Continue same treatment. Further recommendations as per clinical course of the patient PHYSICAL EXAMINATION: GENERAL: The patient is A&O x3, NAD HEENT: EOMI, Sclerae anicteric, Moist Mucous membranes Neck: Supple, Non tender, No JVD PULMONARY: Equal breath souds B/L, No wheezing, No crackles. CARDIOVASCULAR: S1, S2 present. No murmurs, rubs, or gallops. ABDOMEN: Binder in place. MUSCULOSKELETAL: No edema, No cyanosis. No clubbing. Normal ROM. Intact peripheral pulses. NEUROLOGICAL: CN 2-12 grossly intact. No FND Skin: No Rash REVIEW OF SYSTEMS: CONSTITUTIONAL: No fever or chills. CARDIOVASCULAR: No chest pain, palpitations or syncope. PULMONARY: No shortness of breath, no cough, sore throat. GASTROINTESTINAL: No nausea, vomiting, diarrhea, complains of abdominal pain which is better as compared to yesterday. : No Dysuria, urgency, frequency. Extremities: No edema. NEUROLOGICAL: No headaches, no weakness, or numbness Dictation was produced using [employer] dictation software. please excuse any grammatical, word or spelling errors. Objective - Vital Signs Vital signs: Vital Signs Temp 97.5 F L 06/16/24 07:11 Pulse 61 06/16/24 07:11 Resp 18 06/16/24 07:11 BP 122/68 06/16/24 07:11 Pulse Ox 95 06/16/24 07:11 FiO2 Intake & Output 06/15/24 06/16/24 06/16/24 18:59 06:59 18:59 Intake Total 1200 Output Total 20 20 Balance 1180 -20 Weight 83.9 kg Intake: IV 1200 Output: Drainage 20 Abdomen 20 Estimated Blood Loss 20 Other: Voiding Method Bedside Commode # Voids 2 - Labs CBC & Chem 7: 06/16/24 03:49 06/16/24 03:49 Labs: Abnormal Lab Results - Last 24 Hours (Table) 06/16/24 06/16/24 Range/Units 03:49 03:49 WBC 17.73 H (4.50-10.00) X 10*3/uL MCV 98.5 H (80.0-97.0) FL MCHC 30.2 L (32.0-37.0) g/dL MPV 13.2 H (9.5-12.2) FL Immature Gran # 0.08 H (0.00-0.04) X 10*3/uL Neutrophils # 15.71 H (1.80-7.70) X 10*3/uL Eosinophils # 0 L (0.04-0.35) X 10*3/uL Glucose 153 H (70-110) mg/dL Total Bilirubin 0.2 L (0.3-1.2) mg/dL Albumin 3.4 L (3.8-4.9) g/dL Albumin/Globulin Ratio 1.17 L (1.60-3.17) Ratio
--- NOTE | 2024-06-16 14:21 | P.DS ---
Providers Expected date of discharge: 06/16/24 Attending physician: Alexei Nelson Consults: 06/15/24 14:25 Consult Physician Routine Consulting Provider: Bakari Archer Consult Reason/Comments: med mgmt Do you want consulting provider notified?: Yes Primary care physician: Rober Valencia [facility] Course: Discharge diagnosis 1. Incisional hernia status post reducible incisional hernia repair with mesh and lysis of adhesions. 2. Leukocytosis likely reactive Hospital course This is a 68-year-old female with an incisional hernia. She is status post reducible incisional hernia repair with mesh and lysis of adhesions. Patient tolerated surgery well. Pain is controlled. She is tolerating diet. She is having flatus. Denies any difficulty urinating. She has been up and ambulating she is afebrile. She is stable for discharge. Please refer to chart for any further details. Physician Scissors Grinder note has been reviewed by physician. Signing provider agrees with the documented findings, assessment, and plan of care. Patient Condition at Discharge: Stable Plan - Discharge Summary Discharge Rx Participant: No New Discharge Prescriptions: New Acetaminophen Tab [Tylenol] 650 mg PO Q6H #0 tab oxyCODONE HCL [OxyIR] 5 mg PO Q6H PRN 3 Days #6 tab PRN Reason: Breakthrough Pain Continue Warfarin [Coumadin] 5 mg PO DAILY Levothyroxine Sodium [Synthroid] 50 mcg PO DAILY Cyanocobalamin [Vitamin B-12] 500 mcg PO Q2D Cholecalciferol [Vitamin D3 (25 Mcg = 1000 Iu)] 2,000 unit PO DAILY Lutein 20 mg PO Q2D Calcium Carbonate/Vitamin D3 [Calcium 500-Vit D3 5 Mcg (200 Iu)] 1 each PO DAILY Discontinued Apixaban [Eliquis] 5 mg PO BID Discharge Medication List Cholecalciferol [Vitamin D3 (25 Mcg = 1000 Iu)] 2,000 unit PO DAILY 08/07/14 [History] Cyanocobalamin [Vitamin B-12] 500 mcg PO Q2D 08/07/14 [History] Levothyroxine Sodium [Synthroid] 50 mcg PO DAILY 08/07/14 [History] Warfarin [Coumadin] 5 mg PO DAILY 08/07/14 [History] Calcium Carbonate/Vitamin D3 [Calcium 500-Vit D3 5 Mcg (200 Iu)] 1 each PO DAILY 06/11/24 [History] Lutein 20 mg PO Q2D 06/11/24 [History] oxyCODONE HCL [OxyIR] 5 mg PO Q6H PRN 3 Days #6 tab 06/15/24 [Rx] Acetaminophen Tab [Tylenol] 650 mg PO Q6H #0 tab 06/16/24 [Rx] Follow up Appointment(s)/Referral(s): Alexei Nelson MD [Medical Doctor] - 07/02/24 8:10 am Activity/Diet/Wound Care/Special Instructions: OK TO RESUME COUMADIN 5MG TONIGHT. OK TO RESUME ELIQUIS TOMORROW NIGHT (SATURDAY IN ADDITION TO THE COUMADIN). THEN ON SAT TAKE ELIQUIS TWICE A DAY AND THEN BE DONE WITH ELIQUIS AND CONTINUE WITH YOUR NORMAL COUMADIN DOSE DAILY PER DR NELSON. No lifting over 10 pounds for 6 to 8 weeks. Keep dressing in place for 48 hours. May shower with dressing in place tomorrow. Record output of PATIENCE drain daily. Ice as needed. Abdominal binder as needed. Discharge Disposition: HOME SELF-CARE
[2024-06-16 14:46] VITALS: BP 116/61; PULSE 65; RESP 17; TEMP 97.6
== END 2024-06-16 15:25 | disposition home or self-care (01) ==
LOC: OR 08:57 → 4SSUR 12:37 → OR 06-16 15:25
PROVIDERS: ATTEND Surgery
DX: K43.2 Incisional hernia without obstruction or gangrene (principal); D72.829 Elevated white blood cell count, unspecified; E03.9 Hypothyroidism, unspecified; M79.7 Fibromyalgia; Z79.01 Long term (current) use of anticoagulants; Z79.890 Hormone replacement therapy; Z86.711 Personal history of pulmonary embolism; Z86.718 Personal history of other venous thrombosis and embolism; Z88.0 Allergy status to penicillin; Z88.1 Allergy status to other antibiotic agents; Z88.2 Allergy status to sulfonamides; Z90.49 Acquired absence of other specified parts of digestive tract; Z90.710 Acquired absence of both cervix and uterus; Z91.041 Radiographic dye allergy status; Z79.899 Other long term (current) drug therapy
CPT/HCPCS: 80053; 85025; 85610 ×2; 49593; C1781; J2250; J1100; J0690; J2405 ×2; J3010; J1885 ×2; J1171; J0665; 88302